=== PATIENT | female | born 1950 | race Caucasian/White ===

== ENCOUNTER → 2023-04-28 | Outpatient (CLI) | payer MEDICARE ==
--- NOTE | 2023-04-29 10:51 | MR ---
EXAMINATION TYPE: MR knee LT wo con DATE OF EXAM: 04/28/2023 COMPARISON: None HISTORY: Pain TECHNIQUE: Multiplanar, multisequence imaging of the left knee is performed without IV contrast. FINDINGS: MEDIAL MENISCUS: Oblique tear posterior horn medial meniscus. Anterior horn is intact. LATERAL MENISCUS: Anterior and posterior horns are intact without tear. CRUCIATE LIGAMENTS: The anterior and posterior cruciate ligaments are intact and unremarkable. COLLATERAL LIGAMENTS: The medial collateral ligament and lateral collateral ligament complex are inta ct and unremarkable. EXTENSOR MECHANISM: Visualized quadriceps and patellar tendons are intact. EFFUSION: Small knee joint effusion present. POPLITEAL CYST: Large Rojas's cyst noted measuring 5.2 cm in craniocaudal dimension. TRICOMPARTMENT SPACES: Moderate narrowing medial tibiofemoral joint space. Moderate narrowing patello femoral joint space with early changes of chondromalacia patella. CARTILAGE: Patellar cartilaginous thinning most then of the cartilage along the medial femoral condyl e. BONE MARROW SIGNAL: Medial femoral condylar bone contusion. OTHER: No additional significant abnormality is appreciated. IMPRESSION: 1. Oblique tear posterior horn medial meniscus. 2. Changes of osteoarthritis. 3. Rojas's cyst
== END ==
LOC: RADMRIMAIN 06:19
PROVIDERS: ATTEND Orthopaedic Surgery
DX: S83.262D Peripheral tear of lateral meniscus, current injury, left knee, subsequent encounter (principal); S76.312D Strain of muscle, fascia and tendon of the posterior muscle group at thigh level, left thigh, subsequent encounter; S83.222D Peripheral tear of medial meniscus, current injury, left knee, subsequent encounter; S83.242D Other tear of medial meniscus, current injury, left knee, subsequent encounter; M17.12 Unilateral primary osteoarthritis, left knee; M71.22 Synovial cyst of popliteal space [Baker], left knee; X58.XXXD Exposure to other specified factors, subsequent encounter

== ENCOUNTER → 2024-06-30 | Outpatient (CLI) | payer MEDICARE ==
[2024-06-30 08:17] VITALS: BP 103/74; PULSE 80; RESP 17; TEMP 98.1
== END ==
LOC: WWCWWP 07:11
PROVIDERS: ATTEND Surgery
DX: Z53.9 Procedure and treatment not carried out, unspecified reason (principal); F12.90 Cannabis use, unspecified, uncomplicated

== ENCOUNTER → 2024-06-30 | Day surgery (SDC) | payer MEDICARE ==
--- NOTE | 2024-06-30 08:18 | P.GSCN ---
History of Present Illness Consult date: 06/30/24 Reason for Consult: Abnormal right breast mammogram Requesting physician: Sandra Trevino History of present illness: Joyce is a 74-year-old female who underwent a bilateral mammogram in 06-05-2024. This revealed persistent density in the upper outer quadrant of the right breast. An ultrasound was performed of the area on the same date. This did not reveal any specific lesions of concern. The patient was recommended to undergo a stereotactic core biopsy. The patient had had a prior mammogram of this area approximately a year ago and was recommended at that time stereotactic core biopsy of that area. The patient did not have it done at that time. She is not complaining of any lumps masses or nodules of concern in either breast. She is not complaining of any nipple discharge or skin changes. She has never had any trauma or infection in her breast. She has never had any surgery on her breast. She has a skin lesion on her right breast which is increasing in size. Note review 01-19-24 Juanis Salter [employer] caffiene: 1 cup coffee/day nicotine: 1PPD/ for 2011 chocolate: occasional BCP: 5 years hormones: none Family History: father: lung and bone cancer smoker sister: lung and bone cancer smoker Hormonal History: menarche: 15 G0 menopause: 53 Surgical History: fiborid tumors removed tonsil skin cancer right chest/ ? SCC was not melanoma Medical History: stress Social History: nicotine: as about alcohol: weekly drugs: marijuana since 17, several times a week Review of Systems - Constitutional Denies fever, Denies weight loss - EENT Eyes: denies blurred vision Ears: deny: decreased hearing, tinnitus Ears, nose, mouth and throat: Denies dysphagia - Breasts bilateral: as per HPI - Cardiovascular Denies chest pain, Denies shortness of breath - Respiratory Reports as per HPI - Gastrointestinal Reports as per HPI - Genitourinary Genitourinary: Denies dysuria, Denies hematuria Menstruation: Reports postmenopausal - Musculoskeletal Reports as per HPI - Integumentary Denies rash, Denies unusual bruising - Neurological Denies headaches, Denies syncope - Psychiatric Reports anxiety, Reports depression - Endocrine Reports weight change - Hematologic/Lymphatic Denies easy bleeding, Denies easy bruising - Allergic/Immunologic Reports as per HPI Past Medical History Past Medical History: Cancer Additional Past Medical History / Comment(s): Skin cancer on Right breast History of Any Multi-Drug Resistant Organisms: None Reported Past Surgical History: Tonsillectomy Additional Past Surgical History / Comment(s): Fibroid removed from uterus. Past Anesthesia/Blood Transfusion Reactions: No Reported Reaction Past Psychological History: Anxiety, Depression Smoking Status: Current every day smoker Past Alcohol Use History: Occasional Additional Past Alcohol Use History / Comment(s): 2 times weekly Past Drug Use History: None Reported Medications and Allergies Home Medications Medication Instructions Recorded Confirmed Type Cyanocobalamin (Vitamin B-12) 1,000 mcg PO DAILY 07/02/23 06/16/24 History [Vitamin B-12] DULoxetine HCL [Cymbalta] 30 mg PO DAILY 07/02/23 06/16/24 History Magnesium Oxide [Magnesium] 500 mg PO DAILY 07/02/23 06/16/24 History Allergies Allergy/AdvReac Type Severity Reaction Status Date / Time No Known Allergies Allergy Verified 06/30/24 08:14 Surgical - Exam - General no distress - Eyes normal ocular movement - ENT no hearing loss - Neck trachea midline - Respiratory normal respiratory effort, clear to auscultation - Cardiovascular Rhythm: regular Heart Sounds: normal: S1, S2 - Abdomen Abdomen: soft, non tender, no guarding, no rigid, no rebound - Integumentary normal turgor - Musculoskeletal normal gait - Psychiatric oriented to time, oriented to person, oriented to place, speech is normal, memory intact Breast Exam: BRA: 36D Inspection: bilateral grade 3 ptosis Palpation: right breast: Multi positional exam no dominant masses or nodules of concern, particular attention to the area in the upper outer margin did not reveal any specific lesions of concern Right axilla: No adenopathy of concern Left breast: Multi positional exam no dominant masses or nodules of concern Left axilla: No adenopathy of concern skin lesion right breast inferior to aerola about 1 cm in size Results Mammogram personally reviewed and discussed with radiologist Dr. Olivo, there is thought that the area noted on the mammogram has been stable since 2013, he is therefore suggested a 6-month follow-up Assessment and Plan Assessment: Impression: Radiographic abnormality right breast/appears to be stable since 2013/personally reviewed with radiologist Skin lesion right breast increasing in size with border irregular and some color variation Nicotine dependence Anxiety/depression Plan: 1. We have discussed stereotactic biopsy of the right breast. At this time secondary to the radiographic stability the patient would prefer to have close surveillance rather than a biopsy. She understands that I cannot promise that there is not something pathologic in the breast however at this time secondary to the radiographic stability we are going to follow this conservatively. If anything changes she will see me sooner otherwise we will get a repeat right breast mammogram in 6 months with examination at that time Additionally the patient is noted to have a changing skin lesion in the right breast for which excision has been recommended, we will schedule for excision of the skin lesion in the office CC: Dr. Trevino
--- NOTE | 2024-07-03 07:03 | MM ---
Risk Values: Mariya 5 year model risk: 1.2%. NCI Lifetime model risk: 2.7%. Findings: The procedure of stereotactic guided core biopsy was explained to the patient. Benefits, alternatives, and risks were discussed. Prior to procedure outside study is reviewed. There is no suspicious new focal lesion in the upper outer quadrant of right breast to warrant sampling currently. The area of concern is not significantly changed from older mammograms including 2014 mammogram. Case is reviewed with breast surgeon who also agrees. Patient told of reason for canceling the biopsy and was agreeable to this and recommended short-term follow-up. Impression: Canceled STEREOTACTIC GUIDED CORE BIOPSY OF AREA OF CONCERN IN THE Right BREAST. BI-RADS 3 probable benign findings. Management: Diagnostic Mammogram of the right breast in 6 months. [facility], , 06/30/2024 9:01 AM . Electronically signed and approved by: Bandar Smith M.D.
== END ==
LOC: RADMAMWWP 07:12
PROVIDERS: ATTEND Surgery
DX: R92.8 Other abnormal and inconclusive findings on diagnostic imaging of breast (principal)